=== PATIENT | female | born 1990 | race Caucasian/White ===

== ENCOUNTER 2017-05-03 12:14 | Observation (INO) | payer BC ==
[2017-05-03 12:39] LABS: Hematocrit 34.1 % (37.0-47.0); Hemoglobin 11.9 gm/dL (12.5-16.0); Mean Corpuscular Hemoglobin 31.4 pg (27-31); Mean Corpuscular Hgb Conc 34.9 g/dl (32-36); Neutrophil % 67.1 % (42-75.0); Platelet Count 242 K/mm3 (150-450); Red Blood Count 3.79 M/mm3 (4.2-5.4); Red Cell Distribution Width 13.7 % (11.5-14.0)
[2017-05-03 12:49] LABS: Albumin * 2.8 gm/dl (3.4-5.0); Anion Gap 18.4 mmol/L (6.8-13.8); Bilirubin, Total 0.5 mg/dL (0.0-1.1); Ca. Corrected For Albumin 9.4 mg/dL (8.4-10.2); Calcium * 8.8 mg/dL (7.9-10.9); Carbon Dioxide 20.2 mmol/L (24-32.6); Potassium 3.6 mmol/L (3.4-4.6); Total Protein 6.6 gm/dL (6.2-8.2)
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
[2017-05-03 14:35] VITALS: BP 116/72
[2017-05-03] MEDS ORDERED: ONDANSETRON HCL/PF 2 MG/ML VIAL IV PRN (14:51)
[2017-05-03] MEDS ORDERED: ACETAMINOPHEN 500 MG TABLET PO PRN (14:51)
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
--- NOTE | 2017-05-04 12:44 | DS ---
Description of Stay: Pt was monitored continuously, FHTs remained reassuring, no vaginal bleeding, occasional contractions that the pt did not feel, active movements. Procedures Performed: see notes below List Procedures: CEFM US Imaging done in ED Results and Findings: no evidence of abruption Discharge Disposition: Home self care Disposition: Home self-care Condition: Stable Discharge Activity: Activity as tolerated Discharge Diet: General/regular food Problem Oriented Discharge Instructions to Patient/Family: [place] Abruption Additional Patient Instructions (free text): Watch out for signs or symptoms of abruption. Complete Home Medications List: Complete Home Medication List: [id number]/Iron Fumarate/FA/Dss [ 19 Tablet] 1 each PO DAILY 05/03/17
== END 2017-05-04 13:30 | disposition home or self-care (01) ==
LOC: ER 12:14 → OB 14:38
PROVIDERS: ADMIT Obstetrics & Gynecology Gynecologic Oncology; ATTEND Obstetrics & Gynecology Gynecologic Oncology
DX: S06.9X9A Unspecified intracranial injury with loss of consciousness of unspecified duration, initial encounter (principal); O9A.213 Injury, poisoning and certain other consequences of external causes complicating pregnancy, third trimester; Z3A.39 39 weeks gestation of pregnancy; V49.88XA Car occupant (driver) (passenger) injured in other specified transport accidents, initial encounter; Y92.414 Local residential or business street as the place of occurrence of the external cause
CPT/HCPCS: 36415; 59025; 70450; 72125; 76815; 80053; 85025; 99284; G0378

== ENCOUNTER 2017-05-15 21:00 | Inpatient (IN) | payer BC ==
[2017-05-15] MEDS ORDERED: LIDOCAINE HCL 50 ML VIAL PERI PRN (21:30)
[2017-05-15] MEDS ORDERED: RINGER'S SOLUTION,LACTATED 1,000 ML IV ONE (21:30)
[2017-05-15] MEDS ORDERED: OXYTOCIN/DEXTROSE 5%-WATER 30 UNITS/500 ML BAG IV ONE (21:30)
[2017-05-15] MEDS ORDERED: NALOXONE HCL 1 MG/1 ML SYRG IV PRN (21:32)
[2017-05-15] MEDS ORDERED: ONDANSETRON HCL/PF 2 MG/ML VIAL IV PRN (21:32)
[2017-05-15] MEDS ORDERED: BUPIVACAINE HCL/0.9 % NACL/PF 250 ML EP PRN (21:32)
[2017-05-15] MEDS ORDERED: fentaNYL CITRATE/PF 50 MCG/ML AMPUL IT SCH (21:45)
[2017-05-15 21:46] LABS: Hemoglobin 11.3 gm/dL (12.5-16.0); Mean Cell Volume 89.9 fl (78-100); Mean Corpuscular Hemoglobin 30.8 pg (27-31); Mean Corpuscular Hgb Conc 34.2 g/dl (32-36); Mean Platelet Volume 8.6 fl (6.0-9.5); Neutrophil # 8.4 K/mm3 (1.3-6.0); Neutrophil % 69.7 % (42-75.0); Platelet Count 257 K/mm3 (150-450); Red Blood Count 3.67 M/mm3 (4.2-5.4); Red Cell Distribution Width 13.6 % (11.5-14.0); White Blood Count 12.1 K/mm3 (4.0-10.5)
--- NOTE | 2017-05-15 22:08 | OR ---
Anesthesia Pre Procedure Eval Date of Service: 05/15/17 Pre Procedure Evaluation: Last Vital Signs Temp 36.7 C 05/03/17 12:20 Pulse Resp BP 116/72 05/03/17 14:13 Pulse Ox Anesthesia Pre Procedure Evaluation Heart Rate: 90 Blood Pressure: 132/79 Temperature: 36.4C Respiratory Rate: 20 SaO2: 100% DATE: 05/15/2017 TIME: 2200 INDICATIONS: Active labor, labor pain PAST MEDICAL HISTORY: Primipara patient in active labor requesting labor analgesia. She has had 4 cm dilatation History of GERD: No History of smoking: Known History of sleep apnea: No EXAM: Heart regular; lungs clear ASSESSMENT OF MEDICAL STATUS: Appropriate candidate for labor analgesia PLANNED PROCEDURE: Combination spinal epidural for labor analgesia Home Medications: HOME MEDICATIONS [id number]/Iron Fumarate/FA/Dss [ 19 Tablet] 1 each PO DAILY 05/03/17 [Last Taken 05/15/17 18:00] Polyethylene Glycol 3350 [Miralax] 17 gm PO DAILY 05/15/17 [Last Taken 05/15/17 08:00]
[2017-05-15] MEDS: RINGER'S SOLUTION,LACTATED 1,000 ML IV PRN (22:20)
--- NOTE | 2017-05-15 22:32 | OR ---
Anesthesia Procedure Note - Anesthesia Procedure Note Date of Service: 05/15/17 Narrative: Vital Signs - Last Taken Temp 36.7 C 05/03/17 12:20 Pulse Resp BP 116/72 05/03/17 14:13 Pulse Ox 05/15/17 22:30 ANESTHESIA PROCEDURE NOTE Date of Procedure: 05/15/2017 Time of procedure: 10 PM. Performed by: CORWIN Jarrett CRNA, MSN Exerciser Horse: Alex Villafana RN. Preprocedure diagnosis: Active labor, labor pain. Post procedure diagnosis: Same. Procedure:Epidural for labor analgesia L3 4. Indications: Labor pain. Findings: See below. Details of the procedure: The patient was placed on the side of the bed in sitting positionand prepped with DuraPrep then draped in a sterile fashion. Lidocaine 1% was infiltrated to the skin and subcutaneous tissues at the level of the L3 4 interspace. An 18-gauge Touhy needle was used to approach the epidural space with loss of resistance technique. Once loss of resistance was achieved a 24-gauge Pencan needle was passed through the epidural needle and CSF was contacted. After CSF returned fentanyl 20 mcg of fentanyl was injected in the spinal needle was removed the epidural catheter was then threaded approximately 4 cm in the epidural needle was removed. The catheter was taped in place and after careful aspiration 3 mL of 1.5% lidocaine with 1-200,000 epinephrine was injected without change in maternal heart rate or sensorium. . EBL: Minimal. Fluids: N/A. Specimen: N/A. Post procedure condition: The patient tolerated the procedure well with. Good Relief. No complications were noted. Thank you for this consultation. Michael Navas CRNA, COPPER ETCHER, MSN
[2017-05-16] MEDS ORDERED: CALCIUM CARBONATE 500 MG TAB.CHEW PO PRN (00:08)
--- NOTE | 2017-05-16 05:47 | PN ---
Subjective - Date and Time Seen Date: 05/16/17 Subjective Narrative: labor note called and notified by nurse that she was 9 cm with a bulging bag. G1 at 40 5/7 weeks today. admitted in labor at 4 cm. 90% and 0 station. got epidural at 22:30 last night. pitocin started at 02:07 for augmentation at 2 mu/min. progressed to 9 cm, 100% and +1 at 5:10. SROM at 5:30 with clear fluid. Cervix: 9 cm, 95% and +1 FHR: reassuring, 125s with accels. Jenkins: q2-3 min. Plan: pitocin increased to 4 mu/min. expect vaginal delivery. Ariel Stafford MD Objective - Vitals Vitals: Last Vital Signs Temp 36.4 C L 05/15/17 22:37 Pulse 91 05/15/17 22:37 Resp 18 05/15/17 22:37 BP 116/72 05/15/17 22:37 Pulse Ox 100 05/15/17 22:37 - Abnormal Lab Findings Abnormal Lab Findings: Abnormal Lab Results 05/15/17 Range/Units 21:40 WBC 12.1 H (4.0-10.5) K/mm3 RBC 3.67 L (4.2-5.4) M/mm3 Hgb 11.3 L (12.5-16.0) gm/dL Hct 33.0 L (37.0-47.0) % Neutrophils # 8.4 H (1.3-6.0) K/mm3 Cauti Physician Documentation - Urinary Catheter Management Urethral (Lacy) Date of Insertion: 05/15/17 Time of Insertion: 23:00
[2017-05-16] MEDS: RINGER'S SOLUTION,LACTATED 1,000 ML IV PRN (06:08)
[2017-05-16] MEDS ORDERED: CITRIC ACID/SODIUM CITRATE 60 ML BTL PO ONE (08:00)
[2017-05-16] MEDS ORDERED: MISOPROSTOL 200 MCG TABLET RC SCH (08:12)
[2017-05-16] MEDS ORDERED: MISOPROSTOL 100 MCG TABLET VG ONE (08:12)
[2017-05-16] MEDS ORDERED: HYDROCORTISONE 30 APPL TUBE TP PRN (08:54)
[2017-05-16] MEDS ORDERED: HYDROcodone/ACETAMINOPHEN 1 EACH TABLET PO PRN (08:54)
[2017-05-16] MEDS ORDERED: BISACODYL 10 MG SUPP.RECT RC PRN (08:54)
[2017-05-16] MEDS ORDERED: SENNOSIDES 8.6 MG TABLET PO PRN (08:54)
[2017-05-16] MEDS ORDERED: BENZOCAINE/MENTHOL 81 SPRAY CAN TP PRN (08:54)
[2017-05-16] MEDS ORDERED: GLYCERIN/WITCH HAZEL LEAF 40 APPL BOX TP PRN (08:54)
[2017-05-16] MEDS ORDERED: diphenhydrAMINE HCL 25 MG CAPSULE PO PRN (08:54)
--- NOTE | 2017-05-16 08:54 | OR ---
Operative Report - Dictated Report Narrative: Spontaneous Vaginal Delivery Note: 27 yo, CF, G1 at 40 5/7 weeks, admitted in labor, dilated to 4 cm, GBS negative. Received epidural for pain and pitocin started 4 hours later for augmentation. Progressed to 9 cm and SROM with clear fluid. Progressed to complete without complications. The perineum cleaned with betadine. Pushed with contractions and descent. Head delivered in direct OP over the perineum. No nuchal cord noted. The shoulders and the rest of the baby delivered without difficulty. Meconium noted after delivery. Baby cried at perineum. Mouth and nose were bulb-suctioned. Baby placed on maternal abdomen for drying and care by the nursing. Cord clamped after one minute of life. Cord was cut by father of baby. Cord blood was obtained. Placenta delivered intact with 3 vessel cord. Pitocin drip started after placenta delivered. Uterus was boggy and vaginal bleeding was brisk. Fundus was massaged and cytotec 800 mcg was placed per rectum. Exam of the perineum, vaginal and cervix revealed a second degree midline perineum laceration. This was repaired with 3-0 Vicryl suture in a normal fashion. Fundus firmed up and bleeding was minimal. Mother and baby tolerated the delivery well. EBL 300 ml. Infant: male, 3876 grams, 8 lbs and 8.7 oz. 9/9. Time of delivery: 08:03. Ariel Stafford MD History for Definition: * The number of deliveries resulting in a live the patient experienced prior to current hospitalization * The previous delivery of live twins or any live multiple gestation is considered one live event. *If primagravida or nulliparous is documented select zero for the number of previous live births. Live Events: 0
[2017-05-16] MEDS: DOCUSATE SODIUM 100 MG CAPSULE PO SCH ×2 (09:15→20:59)
[2017-05-16] MEDS: IBUPROFEN 800 MG TABLET PO PRN ×2 (09:15→22:46)
[2017-05-16] MEDS: HYDROcodone/ACETAMINOPHEN 1 EACH TABLET PO PRN ×2 (09:16→22:45)
[2017-05-16] MEDS: FAMOTIDINE 20 MG TABLET PO SCH (09:37)
[2017-05-17] MEDS: HYDROcodone/ACETAMINOPHEN 1 EACH TABLET PO PRN ×4 (03:47→21:32)
[2017-05-17] MEDS: IBUPROFEN 800 MG TABLET PO PRN ×3 (07:02→21:33)
[2017-05-17] MEDS: DOCUSATE SODIUM 100 MG CAPSULE PO SCH ×2 (09:26→21:32)
[2017-05-17] MEDS: FAMOTIDINE 20 MG TABLET PO SCH (09:26)
--- NOTE | 2017-05-17 15:19 | PN ---
Progess Note - Interim Narrative: 05/17/17 15:17 Doing well, ambulating, voiding, faye po, mod lochea. VSS Abdomen: FF Ext: NT, no swelling A/P: Routine PP care
[2017-05-18] MEDS: DOCUSATE SODIUM 100 MG CAPSULE PO SCH ×2 (07:17→10:19)
[2017-05-18] MEDS: FAMOTIDINE 20 MG TABLET PO SCH ×2 (07:17→10:20)
[2017-05-18] MEDS: HYDROcodone/ACETAMINOPHEN 1 EACH TABLET PO PRN ×2 (07:17→13:22)
[2017-05-18] MEDS: IBUPROFEN 800 MG TABLET PO PRN ×2 (07:17→13:22)
[2017-05-18 07:51] VITALS: BP 128/74
[2017-05-18] MEDS ORDERED: valACYclovir HCL 500 MG TABLET PO SCH (10:00)
--- NOTE | 2017-05-18 10:18 | PN ---
Progess Note - Interim Narrative: 05/18/17 10:14 progress note Subjective: The patient is doing well. She is ambulating, voiding, tolerating by mouth. She has minimal pain and moderate lochia. She passed 2 large blood clots last night with minimal bleeding since then. She complains of a sore in her mouth and then the area where she tends to chew on which she is nervous. It is not painful and feels thick and hard. It came up since yesterday. 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 Objective: General: No acute distress Mouth: A 1.5 cm whitened thick area without red borders Abdomen: Soft, nontender, fundus is firm just below the umbilicus Extremities: minimal edema, nontender to palpation Assessment and plan: day 2 Feeding: Breast Pain: Controlled with by mouth medication control: Pills Mouth sore: Possible to be HSV although unlikely, discussed using Valtrex to treat: Sore due to possible implications for baby , contact precautions given and Valtrex started. Patient encouraged not to on that area and her mouth. We' ll discuss with slag dumper as well. Routine care.
[2017-05-19 12:13] LABS: Herpes Simplex Type 1 IgG Ab <0.90 index
[2017-05-19 14:58] LABS: Herpes Simplex Type 2 IgG Ab <0.90 index
== END 2017-05-18 17:25 | disposition home or self-care (01) | DRG 775 ==
LOC: OBCLINIC 21:00 → OB 21:04
PROVIDERS: ADMIT Obstetrics & Gynecology; ATTEND Obstetrics & Gynecology
PROC: 10E0XZZ Delivery of Products of Conception, External Approach (ICD-10-PCS; principal; 2017-05-16)
PROC: 0KQM0ZZ Repair Perineum Muscle, Open Approach (ICD-10-PCS; 2017-05-16)
PROC: 4A1HXCZ Monitoring of Products of Conception, Cardiac Rate, External Approach (ICD-10-PCS; 2017-05-16)
PROC: 00HU33Z Insertion of Infusion Device into Spinal Canal, Percutaneous Approach (ICD-10-PCS; 2017-05-16)
DX: O48.0 Post-term pregnancy (principal); O22.43 Hemorrhoids in pregnancy, third trimester; O70.1 Second degree perineal laceration during delivery; E83.110 Hereditary hemochromatosis; Z3A.41 41 weeks gestation of pregnancy; Z37.0 Single live birth